=== PATIENT | male | born 1960 | race African-American/Black ===

== ENCOUNTER 2017-04-25 19:52 | Inpatient (IN) | payer OTHER, MEDICAID ==
[~2017-04-25] VITALS: Ht 180.3 cm; Wt 60.8 kg
[2017-04-25] MEDS ORDERED: SODIUM CHLORIDE 0.9% 1,000 ML IV ONE (23:34)
[2017-04-25] MEDS ORDERED: KETOROLAC 30MG/ML VIAL IM ONE (23:45)
[2017-04-26 00:33] LABS: BASOPHILS % 0.9 % (0.0-2.0); EOSINOPHILS % 1.3 % (0.0-5.0); HEMATOCRIT. 45.1 % (42.0-52.0); HEMOGLOBIN. 14.5 g/dL (14.0-18.0); LYMPHOCYTES % 25.3 % (20.0-50.0); MEAN CORPUSCULAR HEMOGLOBIN 29.6 pg (28.0-32.0); MEAN PLATELET VOLUME 8.4 fl (7.4-10.4); MONOCYTES % 12.4 % (2.0-8.0); NEUTROPHILS % 60.1 % (40.0-76.0); PLATELET 163 x1000/uL (130-400); RED CELL DISTRIBUTION WIDTH 16.8 % (11.6-14.6)
[2017-04-26 00:42] LABS: INR 1.1; PROTHROMBIN TIME 11.4 sec (9.4-11.6)
[2017-04-26 00:45] LABS: CHLORIDE 98 mEq/L (98-107)
[2017-04-26 01:01] LABS: CARBON DIOXIDE 35 mEq/L (21-32)
[2017-04-26 03:12] LABS: CLARITY URINE CLOUDY (CLEAR); COLOR URINE DARK YELLOW (YELLOW); GLUCOSE URINE NEGATIVE (NEGATIVE); KETONES URINE TRACE (NEGATIVE); LEUKOCYTE ESTERASE URINE NEGATIVE (NEGATIVE); NITRITE URINE NEGATIVE (NEGATIVE); OCCULT BLOOD URINE NEGATIVE (NEGATIVE); PH URINE 5.5 (4.5-8.0); PROTEIN URINE 2+ (NEGATIVE); SPECIFIC GRAVITY URINE 1.037 (1.005-1.030)
[2017-04-26 03:59] LABS: *AMPHETAMINES SCREEN URINE NEGATIVE (NEGATIVE); *BARBITURATES SCREEN URINE NEGATIVE (NEGATIVE); *BENZODIAZEPINES SCREEN URINE NEGATIVE (NEGATIVE); *COCAINE SCREEN URINE NEGATIVE (NEGATIVE); CANNABINOID URINE SCREEN PRESUMTIVE POSITIVE (NEGATIVE); METHADONE URINE SCREEN NEGATIVE (NEGATIVE); OPIATES URINE SCREEN NEGATIVE (NEGATIVE); PHENCYCLIDINE URINE SCREEN NEGATIVE (NEGATIVE)
[2017-04-26 04:23] LABS: BG BASE EXCESS 3.6 mmol/L (-2.0-2.0); BG CARBOXYHEMOGLOBIN 3.8 % (0.5-1.5); BG DEOXYHEMOGLOBIN 0.3 % (0.0-5.0); BG FRACTION INSPIRED OXYGEN 100; BG HCO3 ACT 33.3 mmol/L (22.0-26.0); BG METHEMOGLOBIN 0.8 % (0.0-1.5); BG OXYGEN SATURATION 99.7 % (92.0-98.5); BG OXYHEMOGLOBIN 95.1 % (94.0-97.0); BG PCO2 75.1 mmHg (35.0-45.0); BG PH 7.265 (7.350-7.450); BG PO2 281.8 mmHg (75.0-100.0); BG SAMPLE SITE LEFT RADIAL; BG TOTAL HEMOGLOBIN 15.2 g/dL (12.0-18.0); BG VENT MODE MASK - NRB
[2017-04-26] MEDS ORDERED: CALCIUM CHLORIDE 1,000 MG in DEXT 5% WATER 90 ML IV SCH (05:00)
[2017-04-26] MEDS ORDERED: LEVOFLOXACIN 750MG PREMIX 150 ML IV ONE (05:30)
[2017-04-26] MEDS ORDERED: IPRATROPIUM BROMIDE (0.02%) 0.5MG/2.5ML NEB HHN SCH (05:36)
[2017-04-26] MEDS ORDERED: ALBUTEROL (0.083%) 2.5MG/3ML NEB HHN SCH ×2 (05:36→12:00)
[2017-04-26] MEDS ORDERED: METHYLPREDNISOLONE SOD SUCC 125 MG/2 ML VIAL IV SCH (05:36)
[2017-04-26] MEDS ORDERED: ASPIRIN 81MG TABLET PO SCH (05:45)
[2017-04-26] MEDS ORDERED: MAGNESIUM 2 G PREMIX 50 ML IV SCH (05:45)
[2017-04-26 08:43] VITALS: BP 92/59
[2017-04-26 11:39] VITALS: BP 92/59
[2017-04-26 12:00] VITALS: BP 98/70
[2017-04-26] MEDS ORDERED: ENOXAPARIN 40MG/0.4ML SYR SUBCUT SCH (12:00)
[2017-04-26 12:36] LABS: BASOPHILS % 0.4 % (0.0-2.0); EOSINOPHILS % 0.1 % (0.0-5.0); HEMOGLOBIN. 15.2 g/dL (14.0-18.0); LYMPHOCYTES % 13.4 % (20.0-50.0); MEAN CORPUSCULAR HEMOGLOBIN 29.7 pg (28.0-32.0); MONOCYTES % 2.1 % (2.0-8.0); PLATELET 166 x1000/uL (130-400); RED BLOOD CELL COUNT 5.11 mill/uL (4.7-6.1); RED CELL DISTRIBUTION WIDTH 17.1 % (11.6-14.6)
[2017-04-26 12:43] LABS: CARBON DIOXIDE 38 mEq/L (21-32); CHLORIDE 98 mEq/L (98-107)
[2017-04-26 14:00] VITALS: BP 109/75
[2017-04-26] MEDS ORDERED: BUDESONIDE 0.5MG/2ML NEB HHN SCH (16:00)
[2017-04-26 17:54] LABS: HEPATITIS B SURFACE ANTIGEN NEGATIVE
[2017-04-26 18:23] LABS: HEPATITIS B CORE AB IGM NEGATIVE
[2017-04-26 18:24] LABS: HEPATITIS A AB IGM NEGATIVE (NEGATIVE)
[2017-04-26] MEDS ORDERED: METHYLPREDNISOLONE SOD SUCC 40 MG/ML VIAL IV SCH (21:00)
[2017-04-27] MEDS ORDERED: LEVOFLOXACIN 500MG PREMIX 100 ML IV SCH (08:00)
== END 2017-04-26 16:10 | disposition left against medical advice (07) | DRG 133 ==
LOC: EDBD → ER 19:53 → 5EST 04-26 05:55 → ENRESERV 04-26 07:53
PROVIDERS: ADMIT Family Medicine; ATTEND Family Medicine
DX: J96.00 Acute respiratory failure, unspecified whether with hypoxia or hypercapnia (principal); G93.41 Metabolic encephalopathy; E43 Unspecified severe protein-calorie malnutrition; I10 Essential (primary) hypertension; D72.819 Decreased white blood cell count, unspecified; E11.9 Type 2 diabetes mellitus without complications; J44.1 Chronic obstructive pulmonary disease with (acute) exacerbation; F12.90 Cannabis use, unspecified, uncomplicated; Q05.9 Spina bifida, unspecified; Z68.1 Body mass index [BMI] 19.9 or less, adult
CPT/HCPCS: 36415; 36600; 71010; 72128; 76800; 80048; 80053; 80305; 81001; 82375; 82805; 83605; 83690; 85025; 85379; 85610; 86705; 86709; 86803; 87040; 87340; 94640; 94660; 96361; 96365; 96366; 96367; 96372; 96375; 99285; G0482; J1650; J1885; J1956; J2930; J3475; J3490; J7030; J7060; J7611

== ENCOUNTER 2017-05-13 07:53 | Inpatient (IN) | payer OTHER, MEDICAID ==
[~2017-05-13] VITALS: Ht 188 cm; Wt 82.7 kg
[2017-05-13 09:28] LABS: BG BASE EXCESS 10.2 mmol/L (-2.0-2.0); BG CARBOXYHEMOGLOBIN 5.6 % (0.5-1.5); BG DEOXYHEMOGLOBIN 23.4 % (0.0-5.0); BG FRACTION INSPIRED OXYGEN 21; BG METHEMOGLOBIN 0.2 % (0.0-1.5); BG OXYGEN SATURATION 75.2 % (92.0-98.5); BG OXYHEMOGLOBIN 70.8 % (94.0-97.0); BG PCO2 78.6 mmHg (35.0-45.0); BG PH 7.324 (7.350-7.450); BG PO2 44.1 mmHg (75.0-100.0); BG SAMPLE SITE RIGHT BRACHIAL; BG TOTAL HEMOGLOBIN 15.2 g/dL (12.0-18.0); BG VENT MODE ROOM AIR
[2017-05-13 09:47] LABS: BASOPHILS % 0.9 % (0.0-2.0); EOSINOPHILS % 0.5 % (0.0-5.0); HEMATOCRIT. 45.6 % (42.0-52.0); HEMOGLOBIN. 14.5 g/dL (14.0-18.0); MEAN CORPUSCULAR HEMOGLOBIN 28.9 pg (28.0-32.0); MEAN CORPUSCULAR VOLUME 90.8 fL (80.0-94.0); MEAN PLATELET VOLUME 7.3 fl (7.4-10.4); MONOCYTES % 14.2 % (2.0-8.0); NEUTROPHILS % 65.4 % (40.0-76.0); PLATELET 192 x1000/uL (130-400); RED BLOOD CELL COUNT 5.02 mill/uL (4.7-6.1); RED CELL DISTRIBUTION WIDTH 17.7 % (11.6-14.6)
[2017-05-13 09:49] LABS: CHLORIDE 96 mEq/L (98-107)
[2017-05-13 09:52] LABS: INR 1.2; PARTIAL THROMBOPLASTIN TIME 24.1 sec (23.4-31.0); PROTHROMBIN TIME 12.8 sec (9.4-11.6)
[2017-05-13 10:05] LABS: CARBON DIOXIDE 41 mEq/L (21-32)
[2017-05-13] MEDS ORDERED: IPRATROPIUM/ALBUTEROL 0.5-3(2.5)MG/3ML NEB HHN ONE (13:15)
[2017-05-13 13:29] LABS: CLARITY URINE CLEAR (CLEAR); COLOR URINE DARK YELLOW (YELLOW); GLUCOSE URINE NEGATIVE (NEGATIVE); KETONES URINE NEGATIVE (NEGATIVE); LEUKOCYTE ESTERASE URINE TRACE (NEGATIVE); NITRITE URINE NEGATIVE (NEGATIVE); OCCULT BLOOD URINE NEGATIVE (NEGATIVE); PROTEIN URINE 2+ (NEGATIVE); SPECIFIC GRAVITY URINE 1.028 (1.005-1.030)
[2017-05-13] MEDS ORDERED: METHYLPREDNISOLONE SOD SUCC 125 MG/2 ML VIAL IV SCH (14:00)
[2017-05-13 17:01] VITALS: BP 118/79
[2017-05-13 17:10] VITALS: BP 118/79
[2017-05-13] MEDS ORDERED: NICOTINE 21MG PATCH TD NR (17:23)
[2017-05-13 18:00] VITALS: BP 104/73
[2017-05-13 20:00] VITALS: BP 110/80
[2017-05-13] MEDS: BUDESONIDE 0.5MG/2ML NEB HHN SCH (20:23)
[2017-05-13 22:00] VITALS: BP 115/82
[2017-05-13] MEDS ORDERED: IPRATROPIUM/ALBUTEROL 0.5-3(2.5)MG/3ML NEB INH PRN (22:00)
[2017-05-13] MEDS ORDERED: MAGNESIUM/ALUMINUM HYDROXIDE/SIMETHICONE 30ML UDC PO PRN (22:00)
[2017-05-13] MEDS ORDERED: CLONIDINE 0.1MG TABLET PO PRN (22:00)
[2017-05-13] MEDS ORDERED: ACETAMINOPHEN 650MG/20.3ML UDC GT PRN (22:00)
[2017-05-13] MEDS ORDERED: ACETAMINOPHEN 325MG TABLET PO PRN (22:00)
[2017-05-13] MEDS ORDERED: NA PHOS,M-B/NA PHOS,DI-BA ENEMA 118ML PR PRN (22:00)
[2017-05-13] MEDS ORDERED: ACETAMINOPHEN 650MG SUPP PR PRN (22:00)
[2017-05-13] MEDS ORDERED: DIPHENHYDRAMINE 50MG/ML VIAL IV PRN (22:00)
[2017-05-13] MEDS ORDERED: DOCUSATE SODIUM 100MG CAPSULE PO PRN (22:00)
[2017-05-13] MEDS ORDERED: GUAIFENESIN 200MG/10ML SUGAR FREE UDC PO PRN (22:00)
[2017-05-13] MEDS ORDERED: HYDROCODONE/ACETAMINOPHEN 5/325MG TABLET PO PRN (22:00)
[2017-05-13] MEDS: SODIUM CHLORIDE 0.9% INJ 3ML FLUSH IVF SCH (22:00)
[2017-05-13] MEDS: QUETIAPINE FUMARATE 25MG TABLET PO SCH (22:11)
[2017-05-13] MEDS: METHYLPREDNISOLONE SOD SUCC 40 MG/ML VIAL IV SCH (22:11)
[2017-05-14] VITALS: BP 114/83
[2017-05-14 02:00] VITALS: BP 96/66
[2017-05-14 03:05] LABS: CREATINE KINASE 119 IU/L (39-308); TROPONIN I < 0.02 ng/mL (0.00-0.04)
[2017-05-14 04:00] VITALS: BP 106/74
[2017-05-14 06:00] VITALS: BP 120/76
[2017-05-14] MEDS: SODIUM CHLORIDE 0.9% INJ 3ML FLUSH IVF SCH (06:31)
[2017-05-14] MEDS: METHYLPREDNISOLONE SOD SUCC 40 MG/ML VIAL IV SCH (06:31)
[2017-05-14 08:00] VITALS: BP 118/80
[2017-05-14] MEDS: QUETIAPINE FUMARATE 25MG TABLET PO SCH (08:34)
[2017-05-14] MEDS: BUDESONIDE 0.5MG/2ML NEB HHN SCH (08:36)
[2017-05-14] MEDS ORDERED: NICOTINE 21MG PATCH TD SCH (09:00)
[2017-05-14 10:00] VITALS: BP 112/77
[2017-05-14 11:32] LABS: BASOPHILS % 0.5 % (0.0-2.0); HEMATOCRIT. 43.6 % (42.0-52.0); HEMOGLOBIN. 13.7 g/dL (14.0-18.0); LYMPHOCYTES % 13.1 % (20.0-50.0); MEAN CORPUSCULAR HEMOGLOBIN 28.4 pg (28.0-32.0); MEAN CORPUSCULAR VOLUME 90.2 fL (80.0-94.0); MEAN PLATELET VOLUME 7.6 fl (7.4-10.4); MONOCYTES % 3.7 % (2.0-8.0); NEUTROPHILS % 82.7 % (40.0-76.0); PLATELET 167 x1000/uL (130-400); RED BLOOD CELL COUNT 4.83 mill/uL (4.7-6.1); RED CELL DISTRIBUTION WIDTH 17.1 % (11.6-14.6)
[2017-05-14 11:52] LABS: CARBON DIOXIDE 37 mEq/L (21-32); CHLORIDE 93 mEq/L (98-107); CREATINE KINASE 99 IU/L (39-308); HDL CHOLESTEROL 38 mg/dL (40-59); LDL CHOLESTEROL 114 mg/dL (5-100); TROPONIN I < 0.02 ng/mL (0.00-0.04)
== END 2017-05-14 11:30 | disposition left against medical advice (07) | DRG 189 ==
LOC: EDBD 08:25 → ER 08:25 → 5EST 13:42 → ENRESERV 15:31
PROVIDERS: ADMIT Family Medicine; ATTEND Family Medicine
PROC: 5A09357 Assistance with Respiratory Ventilation, Less than 24 Consecutive Hours, Continuous Positive Airway Pressure (ICD-10-PCS; principal; 2017-05-13)
DX: J96.01 Acute respiratory failure with hypoxia (principal); E43 Unspecified severe protein-calorie malnutrition; J44.1 Chronic obstructive pulmonary disease with (acute) exacerbation; J96.02 Acute respiratory failure with hypercapnia; F12.90 Cannabis use, unspecified, uncomplicated; F17.210 Nicotine dependence, cigarettes, uncomplicated; F99 Mental disorder, not otherwise specified; Z60.2 Problems related to living alone; Z53.21 Procedure and treatment not carried out due to patient leaving prior to being seen by health care provider; F20.9 Schizophrenia, unspecified; G40.909 Epilepsy, unspecified, not intractable, without status epilepticus; Z87.820 Personal history of traumatic brain injury; Z68.23 Body mass index [BMI] 23.0-23.9, adult; Z72.89 Other problems related to lifestyle
CPT/HCPCS: 36415; 36600; 71010; 80053; 80061; 81001; 82375; 82550; 82805; 83690; 84484; 85025; 85610; 85730; 94640; 94660; 96374; 99285; J2920; J2930; J7620; J7626

== ENCOUNTER 2017-05-17 14:51 | Inpatient (IN) | payer OTHER, MEDICAID ==
[~2017-05-17] VITALS: Ht 172.7 cm; Wt 64.9 kg
[2017-05-17] MEDS ORDERED: METHYLPREDNISOLONE SOD SUCC 125 MG/2 ML VIAL IV STA (15:42)
[2017-05-17] MEDS ORDERED: ALBUTEROL (0.083%) 2.5MG/3ML NEB HHN STA (15:42)
[2017-05-17] MEDS ORDERED: IPRATROPIUM BROMIDE (0.02%) 0.5MG/2.5ML NEB HHN STA (15:42)
[2017-05-17] MEDS ORDERED: LEVOFLOXACIN 750MG PREMIX 150 ML IV ONE (15:45)
[2017-05-17] MEDS ORDERED: MAGNESIUM 2 G PREMIX 50 ML IV ONE (15:45)
[2017-05-17 16:21] LABS: HEMATOCRIT. 43.9 % (42.0-52.0); HEMOGLOBIN. 13.8 g/dL (14.0-18.0); MEAN CORPUSCULAR HEMOGLOBIN 28.4 pg (28.0-32.0); MEAN CORPUSCULAR VOLUME 90.4 fL (80.0-94.0); MEAN PLATELET VOLUME 7.5 fl (7.4-10.4); PLATELET 155 x1000/uL (130-400); RED BLOOD CELL COUNT 4.86 mill/uL (4.7-6.1); RED CELL DISTRIBUTION WIDTH 17.5 % (11.6-14.6)
[2017-05-17 16:23] LABS: CHLORIDE 97 mEq/L (98-107)
[2017-05-17 16:27] LABS: INR 1.2; PARTIAL THROMBOPLASTIN TIME 24.7 sec (23.4-31.0); PROTHROMBIN TIME 12.7 sec (9.4-11.6)
[2017-05-17 16:29] LABS: CARBON DIOXIDE 41 mEq/L (21-32); ETHANOL BLOOD < 10 mg/dL
[2017-05-17 16:35] LABS: TROPONIN I 0.03 ng/mL (0.00-0.04)
[2017-05-17] MEDS ORDERED: FUROSEMIDE 40MG/4ML VIAL IVP ONE (17:00)
[2017-05-17 17:17] LABS: PLATELET ESTIMATE NORMAL
[2017-05-17] MEDS ORDERED: ACETAMINOPHEN 325MG TABLET PO PRN (18:30)
[2017-05-17] MEDS ORDERED: IPRATROPIUM/ALBUTEROL 0.5-3(2.5)MG/3ML NEB INH PRN (18:30)
[2017-05-17] MEDS ORDERED: CLONIDINE 0.1MG TABLET PO PRN (18:30)
[2017-05-17] MEDS ORDERED: ONDANSETRON HCL 4MG/2ML VIAL IV PRN (18:30)
[2017-05-17] MEDS ORDERED: LORAZEPAM 0.5MG TABLET PO PRN (18:30)
[2017-05-17] MEDS ORDERED: MAGNESIUM/ALUMINUM HYDROXIDE/SIMETHICONE 30ML UDC PO PRN (18:30)
[2017-05-17] MEDS ORDERED: DOCUSATE SODIUM 100MG CAPSULE PO PRN (18:30)
[2017-05-17 18:58] LABS: BG BASE EXCESS 7.3 mmol/L (-2.0-2.0); BG BILEVEL POS AIRWAY PRESSURE 15/5; BG CARBOXYHEMOGLOBIN 2.5 % (0.5-1.5); BG DEOXYHEMOGLOBIN 7.5 % (0.0-5.0); BG FRACTION INSPIRED OXYGEN 40; BG HCO3 ACT 37.3 mmol/L (22.0-26.0); BG METHEMOGLOBIN 0.2 % (0.0-1.5); BG OXYGEN SATURATION 92.3 % (92.0-98.5); BG OXYHEMOGLOBIN 89.8 % (94.0-97.0); BG PH 7.287 (7.350-7.450); BG PO2 71.7 mmHg (75.0-100.0); BG SAMPLE SITE RIGHT BRACHIAL; BG TOTAL HEMOGLOBIN 15.1 g/dL (12.0-18.0); BG VENT MODE MASK - BIPAP; BG VENT RATE 16 set
[2017-05-17] MEDS ORDERED: AZITHROMYCIN 500 MG in DEXT 5% WATER 250 ML IV SCH (20:00)
[2017-05-17 21:40] VITALS: BP 93/53
[2017-05-17] MEDS ORDERED: AZITHROMYCIN XX SCH (21:45)
[2017-05-17] MEDS: BUDESONIDE 0.5MG/2ML NEB HHN SCH (22:01)
[2017-05-17 22:02] VITALS: BP 112/48
[2017-05-17 23:31] VITALS: BP 113/51
[2017-05-18] VITALS (15 sets, daily range): BP systolic 90–128; BP diastolic 29–91
[2017-05-18] MEDS: METHYLPREDNISOLONE SOD SUCC 40 MG/ML VIAL IV SCH ×4 (00:07→22:10)
[2017-05-18 00:22] LABS: CREATINE KINASE 121 IU/L (39-308); TROPONIN I < 0.02 ng/mL (0.00-0.04)
[2017-05-18] MEDS: AZITHROMYCIN 500 MG in DEXT 5% WATER 250 ML IV SCH ×2 (00:34→23:51)
[2017-05-18 06:36] LABS: BASOPHILS % 0.6 % (0.0-2.0); EOSINOPHILS % 0.1 % (0.0-5.0); HEMATOCRIT. 43.5 % (42.0-52.0); HEMOGLOBIN. 13.9 g/dL (14.0-18.0); LYMPHOCYTES % 8.9 % (20.0-50.0); MEAN CORPUSCULAR HEMOGLOBIN 28.7 pg (28.0-32.0); MEAN CORPUSCULAR VOLUME 89.9 fL (80.0-94.0); MEAN PLATELET VOLUME 8.1 fl (7.4-10.4); MONOCYTES % 1.3 % (2.0-8.0); NEUTROPHILS % 89.1 % (40.0-76.0); PLATELET 139 x1000/uL (130-400); RED BLOOD CELL COUNT 4.84 mill/uL (4.7-6.1); RED CELL DISTRIBUTION WIDTH 17.1 % (11.6-14.6)
[2017-05-18 07:06] LABS: CARBON DIOXIDE 39 mEq/L (21-32); CHLORIDE 97 mEq/L (98-107); CREATINE KINASE 113 IU/L (39-308); CREATINE KINASE MB FRACTION 4.1 ng/mL (0.5-3.6); HDL CHOLESTEROL 47 mg/dL (40-59); LDL CHOLESTEROL 96 mg/dL (5-100); TROPONIN I < 0.02 ng/mL (0.00-0.04)
[2017-05-18] MEDS: BUDESONIDE 0.5MG/2ML NEB HHN SCH ×2 (08:37→20:59)
[2017-05-18] MEDS: ENOXAPARIN 40MG/0.4ML SYR SUBCUT SCH (09:02)
[2017-05-18 11:10] LABS: BG CARBOXYHEMOGLOBIN 1.5 % (0.5-1.5); BG DEOXYHEMOGLOBIN 7.1 % (0.0-5.0); BG FRACTION INSPIRED OXYGEN 28; BG HCO3 ACT 40.6 mmol/L (22.0-26.0); BG METHEMOGLOBIN 0.4 % (0.0-1.5); BG OXYGEN SATURATION 92.8 % (92.0-98.5); BG PCO2 71.6 mmHg (35.0-45.0); BG PH 7.372 (7.350-7.450); BG PO2 69.2 mmHg (75.0-100.0); BG SAMPLE SITE LEFT BRACHIAL; BG TOTAL HEMOGLOBIN 14.5 g/dL (12.0-18.0); BG VENT MODE NASAL CANNULA
[2017-05-18] MEDS ORDERED: NICOTINE 14MG PATCH TD SCH (13:00)
[2017-05-18] MEDS: LORAZEPAM 2MG/ML CPJ IV PRN (13:29)
[2017-05-18] MEDS: FOLIC ACID/VITAMIN B COMP W-C TABLET PO SCH (13:35)
[2017-05-18] MEDS ORDERED: CHLORDIAZEPOXIDE 25MG CAPSULE PO SCH (14:00)
[2017-05-18 15:17] LABS: AMMONIA 41 uMol/L (<32)
[2017-05-18 17:35] LABS: HEPATITIS B SURFACE ANTIGEN NEGATIVE
[2017-05-18 18:03] LABS: HEPATITIS B CORE AB IGM NEGATIVE
[2017-05-18 18:05] LABS: HEPATITIS A AB IGM NEGATIVE (NEGATIVE)
[2017-05-18] MEDS: NICOTINE 14MG PATCH TD SCH (19:31)
[2017-05-18 19:58] LABS: CLARITY URINE CLEAR (CLEAR); COLOR URINE DARK YELLOW (YELLOW); GLUCOSE URINE NEGATIVE (NEGATIVE); KETONES URINE NEGATIVE (NEGATIVE); LEUKOCYTE ESTERASE URINE NEGATIVE (NEGATIVE); NITRITE URINE NEGATIVE (NEGATIVE); OCCULT BLOOD URINE 2+ (NEGATIVE); PROTEIN URINE TRACE (NEGATIVE); SPECIFIC GRAVITY URINE 1.031 (1.005-1.030)
[2017-05-18 20:16] LABS: *AMPHETAMINES SCREEN URINE NEGATIVE (NEGATIVE); *BARBITURATES SCREEN URINE NEGATIVE (NEGATIVE); *BENZODIAZEPINES SCREEN URINE NEGATIVE (NEGATIVE); *COCAINE SCREEN URINE NEGATIVE (NEGATIVE); CANNABINOID URINE SCREEN NEGATIVE (NEGATIVE); METHADONE URINE SCREEN NEGATIVE (NEGATIVE); OPIATES URINE SCREEN NEGATIVE (NEGATIVE); PHENCYCLIDINE URINE SCREEN NEGATIVE (NEGATIVE)
[2017-05-18] MEDS: IPRATROPIUM/ALBUTEROL 0.5-3(2.5)MG/3ML NEB HHN SCH (20:59)
[2017-05-18] MEDS: CHLORDIAZEPOXIDE 25MG CAPSULE PO SCH (22:18)
[2017-05-19] VITALS (19 sets, daily range): BP systolic 94–140; BP diastolic 64–90
[2017-05-19] MEDS: IPRATROPIUM/ALBUTEROL 0.5-3(2.5)MG/3ML NEB HHN SCH ×4 (01:52→20:02)
[2017-05-19 06:00] LABS: HEMATOCRIT. 44.3 % (42.0-52.0); HEMOGLOBIN. 13.9 g/dL (14.0-18.0); MEAN CORPUSCULAR HEMOGLOBIN 28.2 pg (28.0-32.0); MEAN CORPUSCULAR VOLUME 90.2 fL (80.0-94.0); MEAN PLATELET VOLUME 7.7 fl (7.4-10.4); PLATELET 143 x1000/uL (130-400); RED BLOOD CELL COUNT 4.91 mill/uL (4.7-6.1); RED CELL DISTRIBUTION WIDTH 17.1 % (11.6-14.6)
[2017-05-19] MEDS: METHYLPREDNISOLONE SOD SUCC 40 MG/ML VIAL IV SCH ×3 (06:39→22:51)
[2017-05-19] MEDS: CHLORDIAZEPOXIDE 25MG CAPSULE PO SCH ×3 (06:43→22:51)
[2017-05-19 07:25] LABS: CARBON DIOXIDE 37 mEq/L (21-32); CHLORIDE 96 mEq/L (98-107)
[2017-05-19] MEDS: ENOXAPARIN 40MG/0.4ML SYR SUBCUT SCH (08:39)
[2017-05-19] MEDS: FOLIC ACID/VITAMIN B COMP W-C TABLET PO SCH (08:39)
[2017-05-19] MEDS: BUDESONIDE 0.5MG/2ML NEB HHN SCH ×2 (08:45→20:02)
[2017-05-19] MEDS: NICOTINE 14MG PATCH TD SCH (09:44)
[2017-05-19] MEDS: LACTULOSE 20G/30ML UDC PO SCH (15:09)
[2017-05-19] MEDS: AZITHROMYCIN 500 MG TABLET PO SCH (16:59)
[2017-05-19 17:49] LABS: PLATELET ESTIMATE NORMAL
[2017-05-20] VITALS (12 sets, daily range): BP systolic 119–144; BP diastolic 68–97
[2017-05-20] MEDS: IPRATROPIUM/ALBUTEROL 0.5-3(2.5)MG/3ML NEB HHN SCH ×4 (02:09→20:20)
[2017-05-20] MEDS: METHYLPREDNISOLONE SOD SUCC 40 MG/ML VIAL IV SCH ×3 (06:11→21:42)
[2017-05-20] MEDS: CHLORDIAZEPOXIDE 25MG CAPSULE PO SCH (06:11)
[2017-05-20 06:48] LABS: HEMATOCRIT. 43.8 % (42.0-52.0); HEMOGLOBIN. 13.9 g/dL (14.0-18.0); MEAN CORPUSCULAR HEMOGLOBIN 28.5 pg (28.0-32.0); MEAN CORPUSCULAR VOLUME 90.2 fL (80.0-94.0); MEAN PLATELET VOLUME 7.6 fl (7.4-10.4); PLATELET 147 x1000/uL (130-400); RED BLOOD CELL COUNT 4.86 mill/uL (4.7-6.1); RED CELL DISTRIBUTION WIDTH 16.9 % (11.6-14.6)
[2017-05-20] MEDS: BUDESONIDE 0.5MG/2ML NEB HHN SCH ×2 (07:19→20:20)
[2017-05-20 07:35] LABS: CHLORIDE 93 mEq/L (98-107)
[2017-05-20 08:13] LABS: CARBON DIOXIDE 40 mEq/L (21-32)
[2017-05-20] MEDS: LACTULOSE 20G/30ML UDC PO SCH (08:46)
[2017-05-20] MEDS: ENOXAPARIN 40MG/0.4ML SYR SUBCUT SCH (08:46)
[2017-05-20] MEDS: AZITHROMYCIN 500 MG TABLET PO SCH (08:47)
[2017-05-20] MEDS: FOLIC ACID/VITAMIN B COMP W-C TABLET PO SCH (08:47)
[2017-05-20] MEDS: NICOTINE 14MG PATCH TD SCH (08:48)
[2017-05-20] MEDS ORDERED: GUAIFENESIN/CODEINE 100-10MG/5ML UDC PO PRN (10:00)
[2017-05-20 13:56] LABS: PLATELET ESTIMATE NORMAL
[2017-05-20] MEDS: CHLORDIAZEPOXIDE 5 MG CAPSULE PO SCH ×2 (14:31→21:40)
[2017-05-21] VITALS (12 sets, daily range): BP systolic 108–141; BP diastolic 75–97
[2017-05-21] MEDS: IPRATROPIUM/ALBUTEROL 0.5-3(2.5)MG/3ML NEB HHN SCH ×4 (02:07→20:45)
[2017-05-21] MEDS: CHLORDIAZEPOXIDE 5 MG CAPSULE PO SCH ×3 (06:14→21:01)
[2017-05-21] MEDS: METHYLPREDNISOLONE SOD SUCC 40 MG/ML VIAL IV SCH ×3 (06:28→21:01)
[2017-05-21] MEDS: LACTULOSE 20G/30ML UDC PO SCH (08:19)
[2017-05-21] MEDS: FOLIC ACID/VITAMIN B COMP W-C TABLET PO SCH (08:20)
[2017-05-21] MEDS: AZITHROMYCIN 500 MG TABLET PO SCH (08:20)
[2017-05-21] MEDS: NICOTINE 14MG PATCH TD SCH (08:20)
[2017-05-21] MEDS: ENOXAPARIN 40MG/0.4ML SYR SUBCUT SCH (08:20)
[2017-05-21] MEDS: BUDESONIDE 0.5MG/2ML NEB HHN SCH ×2 (08:32→20:45)
[2017-05-21 10:35] LABS: BG BASE EXCESS 12.2 mmol/L (-2.0-2.0); BG CARBOXYHEMOGLOBIN 1.1 % (0.5-1.5); BG DEOXYHEMOGLOBIN 14.5 % (0.0-5.0); BG FRACTION INSPIRED OXYGEN 32; BG HCO3 ACT 44.1 mmol/L (22.0-26.0); BG METHEMOGLOBIN 0.4 % (0.0-1.5); BG OXYGEN SATURATION 85.3 % (92.0-98.5); BG PCO2 97.7 mmHg (35.0-45.0); BG PH 7.272 (7.350-7.450); BG PO2 54.3 mmHg (75.0-100.0); BG SAMPLE SITE RIGHT RADIAL; BG TOTAL HEMOGLOBIN 15.2 g/dL (12.0-18.0); BG VENT MODE NASAL CANNULA
[2017-05-21] MEDS ORDERED: FUROSEMIDE 40MG/4ML VIAL IVP ONE (13:30)
[2017-05-21] MEDS: LORAZEPAM 2MG/ML CPJ IV PRN (13:48)
[2017-05-21] MEDS: PANTOPRAZOLE 40MG DR TABLET PO SCH (13:48)
[2017-05-21] MEDS ORDERED: PIPERACILLIN/TAZ 3.375G PREMIX 50 ML IV SCH (14:00)
[2017-05-21] MEDS: PIPERACILLIN/TAZ 3.375G PREMIX 50 ML IV SCH ×2 (15:12→21:01)
[2017-05-21 16:04] LABS: BG BASE EXCESS 13.6 mmol/L (-2.0-2.0); BG BILEVEL POS AIRWAY PRESSURE 15/5; BG CARBOXYHEMOGLOBIN 1.7 % (0.5-1.5); BG DEOXYHEMOGLOBIN 5.3 % (0.0-5.0); BG FRACTION INSPIRED OXYGEN 40; BG HCO3 ACT 45.3 mmol/L (22.0-26.0); BG METHEMOGLOBIN 0.4 % (0.0-1.5); BG OXYGEN SATURATION 94.6 % (92.0-98.5); BG OXYHEMOGLOBIN 92.6 % (94.0-97.0); BG PCO2 97.5 mmHg (35.0-45.0); BG PH 7.285 (7.350-7.450); BG PO2 74.9 mmHg (75.0-100.0); BG SAMPLE SITE RIGHT RADIAL; BG TOTAL HEMOGLOBIN 14.9 g/dL (12.0-18.0); BG VENT MODE MASK - BIPAP; BG VENT RATE 16 set
[2017-05-21 18:46] LABS: BG BASE EXCESS 14.7 mmol/L (-2.0-2.0); BG BILEVEL POS AIRWAY PRESSURE EPAP 5; BG CARBOXYHEMOGLOBIN 0.9 % (0.5-1.5); BG DEOXYHEMOGLOBIN 6.6 % (0.0-5.0); BG FRACTION INSPIRED OXYGEN 40; BG METHEMOGLOBIN 0.1 % (0.0-1.5); BG OXYGEN SATURATION 93.3 % (92.0-98.5); BG OXYHEMOGLOBIN 92.4 % (94.0-97.0); BG PCO2 83.9 mmHg (35.0-45.0); BG PH 7.347 (7.350-7.450); BG PO2 68.8 mmHg (75.0-100.0); BG SAMPLE SITE RIGHT RADIAL; BG TIDAL VOLUME(mL) 500 mL; BG TOTAL HEMOGLOBIN 14.9 g/dL (12.0-18.0); BG VENT MODE MASK- AVAPS; BG VENT RATE 20 set
[2017-05-22] VITALS (17 sets, daily range): BP systolic 105–144; BP diastolic 43–87
[2017-05-22] MEDS: IPRATROPIUM/ALBUTEROL 0.5-3(2.5)MG/3ML NEB HHN SCH ×4 (01:03→20:23)
[2017-05-22] MEDS: PIPERACILLIN/TAZ 3.375G PREMIX 50 ML IV SCH ×4 (02:19→21:36)
[2017-05-22 05:54] LABS: HEMOGLOBIN. 14.3 g/dL (14.0-18.0); MEAN CORPUSCULAR HEMOGLOBIN 28.1 pg (28.0-32.0); MEAN CORPUSCULAR VOLUME 90.6 fL (80.0-94.0); MEAN PLATELET VOLUME 7.9 fl (7.4-10.4); PLATELET 116 x1000/uL (130-400); RED BLOOD CELL COUNT 5.08 mill/uL (4.7-6.1); RED CELL DISTRIBUTION WIDTH 16.9 % (11.6-14.6)
[2017-05-22] MEDS: PANTOPRAZOLE 40MG DR TABLET PO SCH (06:18)
[2017-05-22] MEDS: CHLORDIAZEPOXIDE 5 MG CAPSULE PO SCH ×3 (06:18→21:36)
[2017-05-22] MEDS: METHYLPREDNISOLONE SOD SUCC 40 MG/ML VIAL IV SCH ×3 (06:19→21:37)
[2017-05-22 06:42] LABS: CHLORIDE 90 mEq/L (98-107)
[2017-05-22 07:46] LABS: CARBON DIOXIDE 45 mEq/L (21-32)
[2017-05-22] MEDS: AZITHROMYCIN 500 MG TABLET PO SCH (08:01)
[2017-05-22] MEDS: LACTULOSE 20G/30ML UDC PO SCH (08:01)
[2017-05-22] MEDS: ENOXAPARIN 40MG/0.4ML SYR SUBCUT SCH (08:01)
[2017-05-22] MEDS: FOLIC ACID/VITAMIN B COMP W-C TABLET PO SCH (08:01)
[2017-05-22] MEDS: NICOTINE 14MG PATCH TD SCH (08:02)
[2017-05-22] MEDS: BUDESONIDE 0.5MG/2ML NEB HHN SCH ×2 (08:43→20:22)
[2017-05-22 09:49] LABS: BG BASE EXCESS 15.6 mmol/L (-2.0-2.0); BG CARBOXYHEMOGLOBIN 1.4 % (0.5-1.5); BG DEOXYHEMOGLOBIN 8.4 % (0.0-5.0); BG FRACTION INSPIRED OXYGEN 36; BG HCO3 ACT 47.2 mmol/L (22.0-26.0); BG METHEMOGLOBIN 0.4 % (0.0-1.5); BG OXYGEN SATURATION 91.4 % (92.0-98.5); BG OXYHEMOGLOBIN 89.8 % (94.0-97.0); BG PCO2 94.1 mmHg (35.0-45.0); BG PH 7.318 (7.350-7.450); BG PO2 65.8 mmHg (75.0-100.0); BG SAMPLE SITE LEFT BRACHIAL; BG TOTAL HEMOGLOBIN 15.4 g/dL (12.0-18.0); BG VENT MODE NASAL CANNULA
[2017-05-22 10:43] LABS: PLATELET ESTIMATE DECREASED
[2017-05-22] MEDS: THEOPHYLLINE ANHYDROUS 80 MG/15 ML 120ML PO SCH ×2 (11:17→21:38)
[2017-05-22] MEDS: LORAZEPAM 2MG/ML CPJ IV PRN (11:17)
[2017-05-22 15:41] LABS: BG BASE EXCESS 12.7 mmol/L (-2.0-2.0); BG BILEVEL POS AIRWAY PRESSURE ST=15/5; BG CARBOXYHEMOGLOBIN 1.4 % (0.5-1.5); BG DEOXYHEMOGLOBIN 3.1 % (0.0-5.0); BG FRACTION INSPIRED OXYGEN 40; BG HCO3 ACT 43.6 mmol/L (22.0-26.0); BG METHEMOGLOBIN 0.4 % (0.0-1.5); BG OXYGEN SATURATION 96.8 % (92.0-98.5); BG OXYHEMOGLOBIN 95.1 % (94.0-97.0); BG PCO2 88.4 mmHg (35.0-45.0); BG PH 7.311 (7.350-7.450); BG PO2 91.8 mmHg (75.0-100.0); BG PRESSURE SUPPORT 10; BG SAMPLE SITE LEFT BRACHIAL; BG TOTAL HEMOGLOBIN 15.2 g/dL (12.0-18.0); BG VENT MODE MASK - BIPAP; BG VENT RATE 16 set
[2017-05-22] MEDS ORDERED: PROPOFOL 10MG/ML 100ML 100 ML IV PRN (16:00)
[2017-05-22 18:39] LABS: BG CARBOXYHEMOGLOBIN 1.5 % (0.5-1.5); BG FRACTION INSPIRED OXYGEN 40; BG HCO3 ACT 48.7 mmol/L (22.0-26.0); BG METHEMOGLOBIN 0.4 % (0.0-1.5); BG OXYGEN SATURATION 88.8 % (92.0-98.5); BG OXYHEMOGLOBIN 87.1 % (94.0-97.0); BG PCO2 95.5 mmHg (35.0-45.0); BG PH 7.325 (7.350-7.450); BG PO2 58.3 mmHg (75.0-100.0); BG SAMPLE SITE RIGHT RADIAL; BG TOTAL HEMOGLOBIN 15.3 g/dL (12.0-18.0); BG VENT MODE VAPOTHERM
[2017-05-22] MEDS: AMLODIPINE 2.5MG TABLET PO SCH (21:36)
[2017-05-23] VITALS (21 sets, daily range): BP systolic 95–160; BP diastolic 39–109
[2017-05-23] MEDS: IPRATROPIUM/ALBUTEROL 0.5-3(2.5)MG/3ML NEB HHN SCH ×5 (02:32→20:30)
[2017-05-23] MEDS: PIPERACILLIN/TAZ 3.375G PREMIX 50 ML IV SCH ×4 (03:55→22:19)
[2017-05-23 06:05] LABS: HEMATOCRIT. 45.3 % (42.0-52.0); HEMOGLOBIN. 14.2 g/dL (14.0-18.0); MEAN CORPUSCULAR HEMOGLOBIN 28.1 pg (28.0-32.0); MEAN CORPUSCULAR VOLUME 89.6 fL (80.0-94.0); MEAN PLATELET VOLUME 7.5 fl (7.4-10.4); PLATELET 97 x1000/uL (130-400); RED BLOOD CELL COUNT 5.06 mill/uL (4.7-6.1); RED CELL DISTRIBUTION WIDTH 16.9 % (11.6-14.6)
[2017-05-23] MEDS: CHLORDIAZEPOXIDE 5 MG CAPSULE PO SCH ×3 (06:24→21:39)
[2017-05-23] MEDS: METHYLPREDNISOLONE SOD SUCC 40 MG/ML VIAL IV SCH ×2 (06:24→21:39)
[2017-05-23] MEDS: THEOPHYLLINE ANHYDROUS 80 MG/15 ML 120ML PO SCH ×3 (06:25→21:39)
[2017-05-23 06:43] LABS: CHLORIDE 89 mEq/L (98-107)
[2017-05-23 06:53] LABS: CARBON DIOXIDE 43 mEq/L (21-32)
[2017-05-23] MEDS: BUDESONIDE 0.5MG/2ML NEB HHN SCH ×2 (08:24→20:30)
[2017-05-23] MEDS: PANTOPRAZOLE 40MG DR TABLET PO SCH (08:27)
[2017-05-23] MEDS: LACTULOSE 20G/30ML UDC PO SCH (08:27)
[2017-05-23] MEDS: AZITHROMYCIN 500 MG TABLET PO SCH (08:27)
[2017-05-23] MEDS: ENOXAPARIN 40MG/0.4ML SYR SUBCUT SCH (08:27)
[2017-05-23] MEDS: FOLIC ACID/VITAMIN B COMP W-C TABLET PO SCH (08:27)
[2017-05-23] MEDS: AMLODIPINE 2.5MG TABLET PO SCH ×2 (08:27→21:38)
[2017-05-23 08:41] LABS: BG BASE EXCESS 12.8 mmol/L (-2.0-2.0); BG CARBOXYHEMOGLOBIN 1.5 % (0.5-1.5); BG DEOXYHEMOGLOBIN 9.3 % (0.0-5.0); BG FRACTION INSPIRED OXYGEN 35; BG HCO3 ACT 42.5 mmol/L (22.0-26.0); BG OXYGEN SATURATION 90.6 % (92.0-98.5); BG OXYHEMOGLOBIN 89.2 % (94.0-97.0); BG PCO2 77.9 mmHg (35.0-45.0); BG PH 7.355 (7.350-7.450); BG PO2 60.9 mmHg (75.0-100.0); BG SAMPLE SITE LEFT RADIAL; BG TOTAL HEMOGLOBIN 15.7 g/dL (12.0-18.0); BG VENT MODE VAPOTHERM
[2017-05-23 08:44] LABS: PLATELET ESTIMATE SLIGHTLY DECREASED
[2017-05-23] MEDS: NICOTINE 14MG PATCH TD SCH (09:38)
[2017-05-23] MEDS ORDERED: GUAIFENESIN/CODEINE 100-10MG/5ML UDC PO PRN (10:00)
[2017-05-23 10:10] LABS: AMMONIA 30 uMol/L (<32)
[2017-05-23] MEDS: ACETYLCYSTEINE 100MG/ML 10% VIAL 4ML INH SCH ×3 (12:25→20:30)
[2017-05-23 20:24] LABS: HAPTOGLOBIN 127 mg/dL (30-200)
[2017-05-23 20:38] LABS: FERRITIN 74 ng/mL (22-322)
[2017-05-23 20:39] LABS: FOLIC ACID (FOLATE) SERUM > 20.00 ng/mL (>5.38)
[2017-05-24] VITALS (10 sets, daily range): BP systolic 106–155; BP diastolic 71–102
[2017-05-24] MEDS: IPRATROPIUM/ALBUTEROL 0.5-3(2.5)MG/3ML NEB HHN SCH ×6 (00:25→20:16)
[2017-05-24] MEDS: ACETYLCYSTEINE 100MG/ML 10% VIAL 4ML INH SCH ×6 (00:25→20:15)
[2017-05-24] MEDS: PIPERACILLIN/TAZ 3.375G PREMIX 50 ML IV SCH ×4 (04:03→20:39)
[2017-05-24] MEDS: PANTOPRAZOLE 40MG DR TABLET PO SCH (06:39)
[2017-05-24] MEDS: THEOPHYLLINE ANHYDROUS 80 MG/15 ML 120ML PO SCH ×3 (06:39→21:16)
[2017-05-24] MEDS: CHLORDIAZEPOXIDE 5 MG CAPSULE PO SCH ×3 (06:39→21:16)
[2017-05-24] MEDS: METHYLPREDNISOLONE SOD SUCC 40 MG/ML VIAL IV SCH ×2 (08:03→20:39)
[2017-05-24] MEDS: AZITHROMYCIN 500 MG TABLET PO SCH (08:04)
[2017-05-24] MEDS: FOLIC ACID/VITAMIN B COMP W-C TABLET PO SCH (08:04)
[2017-05-24] MEDS: ENOXAPARIN 40MG/0.4ML SYR SUBCUT SCH (08:05)
[2017-05-24] MEDS: NICOTINE 14MG PATCH TD SCH (08:05)
[2017-05-24] MEDS: AMLODIPINE 2.5MG TABLET PO SCH (08:05)
[2017-05-24] MEDS: LACTULOSE 20G/30ML UDC PO SCH (08:13)
[2017-05-24] MEDS: BUDESONIDE 0.5MG/2ML NEB HHN SCH ×2 (08:24→20:15)
[2017-05-24 11:52] LABS: HEMATOCRIT. 46.5 % (42.0-52.0); HEMOGLOBIN. 14.5 g/dL (14.0-18.0); MEAN CORPUSCULAR HEMOGLOBIN 28.1 pg (28.0-32.0); MEAN CORPUSCULAR VOLUME 90.3 fL (80.0-94.0); MEAN PLATELET VOLUME 7.5 fl (7.4-10.4); PLATELET 73 x1000/uL (130-400); RED BLOOD CELL COUNT 5.15 mill/uL (4.7-6.1); RED CELL DISTRIBUTION WIDTH 17.1 % (11.6-14.6)
[2017-05-24 12:04] LABS: CARBON DIOXIDE 39 mEq/L (21-32); CHLORIDE 93 mEq/L (98-107)
[2017-05-24 14:14] LABS: PLATELET ESTIMATE DECREASED
[2017-05-24] MEDS ORDERED: DILTIAZEM HCL 5MG/ML 5ML VIAL IV PRN (16:30)
[2017-05-24] MEDS: DILTIAZEM HCL 60MG TABLET PO SCH (21:16)
[2017-05-25] VITALS (12 sets, daily range): BP systolic 90–159; BP diastolic 42–108
[2017-05-25] MEDS: IPRATROPIUM/ALBUTEROL 0.5-3(2.5)MG/3ML NEB HHN SCH ×6 (00:57→20:12)
[2017-05-25] MEDS: ACETYLCYSTEINE 100MG/ML 10% VIAL 4ML INH SCH ×5 (00:57→16:22)
[2017-05-25] MEDS: PIPERACILLIN/TAZ 3.375G PREMIX 50 ML IV SCH ×4 (03:46→21:24)
[2017-05-25] MEDS: THEOPHYLLINE ANHYDROUS 80 MG/15 ML 120ML PO SCH ×3 (06:03→22:22)
[2017-05-25] MEDS: PANTOPRAZOLE 40MG DR TABLET PO SCH (06:03)
[2017-05-25] MEDS: CHLORDIAZEPOXIDE 5 MG CAPSULE PO SCH ×3 (06:03→21:24)
[2017-05-25] MEDS: DILTIAZEM HCL 60MG TABLET PO SCH ×3 (06:03→21:25)
[2017-05-25] MEDS: BUDESONIDE 0.5MG/2ML NEB HHN SCH ×2 (07:57→20:12)
[2017-05-25] MEDS: LACTULOSE 20G/30ML UDC PO SCH (08:45)
[2017-05-25] MEDS: METHYLPREDNISOLONE SOD SUCC 40 MG/ML VIAL IV SCH (08:45)
[2017-05-25] MEDS: NICOTINE 14MG PATCH TD SCH (08:46)
[2017-05-25] MEDS: FOLIC ACID/VITAMIN B COMP W-C TABLET PO SCH (08:46)
[2017-05-25] MEDS: ENOXAPARIN 40MG/0.4ML SYR SUBCUT SCH (09:00)
[2017-05-26] VITALS (12 sets, daily range): BP systolic 110–150; BP diastolic 59–89
[2017-05-26] MEDS: ACETYLCYSTEINE 100MG/ML 10% VIAL 4ML INH SCH ×6 (00:01→23:43)
[2017-05-26] MEDS: IPRATROPIUM/ALBUTEROL 0.5-3(2.5)MG/3ML NEB HHN SCH ×6 (00:01→23:43)
[2017-05-26] MEDS: PIPERACILLIN/TAZ 3.375G PREMIX 50 ML IV SCH ×4 (03:57→21:27)
[2017-05-26] MEDS: CHLORDIAZEPOXIDE 5 MG CAPSULE PO SCH ×3 (06:16→21:27)
[2017-05-26] MEDS: PANTOPRAZOLE 40MG DR TABLET PO SCH (06:17)
[2017-05-26] MEDS: DILTIAZEM HCL 60MG TABLET PO SCH ×3 (06:17→21:28)
[2017-05-26] MEDS: THEOPHYLLINE ANHYDROUS 80 MG/15 ML 120ML PO SCH ×3 (06:18→21:28)
[2017-05-26] MEDS: FOLIC ACID/VITAMIN B COMP W-C TABLET PO SCH (08:23)
[2017-05-26] MEDS: PREDNISONE 20MG TABLET PO SCH (08:25)
[2017-05-26] MEDS: NICOTINE 14MG PATCH TD SCH (08:26)
[2017-05-26] MEDS: LACTULOSE 20G/30ML UDC PO SCH (09:00)
[2017-05-26] MEDS: BUDESONIDE 0.5MG/2ML NEB HHN SCH ×2 (11:29→19:54)
[2017-05-26 14:05] LABS: BG CARBOXYHEMOGLOBIN 1.2 % (0.5-1.5); BG DEOXYHEMOGLOBIN 15.7 % (0.0-5.0); BG FRACTION INSPIRED OXYGEN 21; BG HCO3 ACT 41.8 mmol/L (22.0-26.0); BG METHEMOGLOBIN 0.2 % (0.0-1.5); BG OXYGEN SATURATION 84.1 % (92.0-98.5); BG OXYHEMOGLOBIN 82.9 % (94.0-97.0); BG PH 7.426 (7.350-7.450); BG PO2 49.5 mmHg (75.0-100.0); BG SAMPLE SITE RIGHT BRACHIAL; BG TOTAL HEMOGLOBIN 15.3 g/dL (12.0-18.0); BG VENT MODE ROOM AIR
[2017-05-27] VITALS (12 sets, daily range): BP systolic 96–148; BP diastolic 51–97
[2017-05-27] MEDS: PIPERACILLIN/TAZ 3.375G PREMIX 50 ML IV SCH ×4 (02:05→21:13)
[2017-05-27] MEDS: IPRATROPIUM/ALBUTEROL 0.5-3(2.5)MG/3ML NEB HHN SCH ×5 (03:57→20:00)
[2017-05-27] MEDS: ACETYLCYSTEINE 100MG/ML 10% VIAL 4ML INH SCH ×4 (03:57→19:59)
[2017-05-27] MEDS: PANTOPRAZOLE 40MG DR TABLET PO SCH (06:41)
[2017-05-27] MEDS: CHLORDIAZEPOXIDE 5 MG CAPSULE PO SCH ×3 (06:41→21:13)
[2017-05-27] MEDS: THEOPHYLLINE ANHYDROUS 80 MG/15 ML 120ML PO SCH ×3 (06:42→21:14)
[2017-05-27] MEDS: DILTIAZEM HCL 60MG TABLET PO SCH ×3 (06:58→21:14)
[2017-05-27 07:33] LABS: BASOPHILS % 0.3 % (0.0-2.0); EOSINOPHILS % 0.4 % (0.0-5.0); HEMATOCRIT. 46.6 % (42.0-52.0); HEMOGLOBIN. 14.8 g/dL (14.0-18.0); LYMPHOCYTES % 12.3 % (20.0-50.0); MEAN CORPUSCULAR HEMOGLOBIN 28.2 pg (28.0-32.0); MEAN CORPUSCULAR VOLUME 88.7 fL (80.0-94.0); MEAN PLATELET VOLUME 8.3 fl (7.4-10.4); MONOCYTES % 10.5 % (2.0-8.0); NEUTROPHILS % 76.5 % (40.0-76.0); PLATELET 68 x1000/uL (130-400); RED BLOOD CELL COUNT 5.25 mill/uL (4.7-6.1); RED CELL DISTRIBUTION WIDTH 17.7 % (11.6-14.6)
[2017-05-27 07:59] LABS: CHLORIDE 95 mEq/L (98-107)
[2017-05-27] MEDS: FOLIC ACID/VITAMIN B COMP W-C TABLET PO SCH (08:28)
[2017-05-27] MEDS: LACTULOSE 20G/30ML UDC PO SCH (08:28)
[2017-05-27] MEDS: PREDNISONE 20MG TABLET PO SCH (08:28)
[2017-05-27] MEDS: NICOTINE 14MG PATCH TD SCH (08:33)
[2017-05-27 08:35] LABS: CARBON DIOXIDE 41 mEq/L (21-32)
[2017-05-27] MEDS: BUDESONIDE 0.5MG/2ML NEB HHN SCH ×2 (09:00→19:59)
[2017-05-28] VITALS (16 sets, daily range): BP systolic 91–161; BP diastolic 61–102
[2017-05-28] MEDS: IPRATROPIUM/ALBUTEROL 0.5-3(2.5)MG/3ML NEB HHN SCH ×6 (00:16→19:54)
[2017-05-28] MEDS: PIPERACILLIN/TAZ 3.375G PREMIX 50 ML IV SCH ×2 (03:23→10:18)
[2017-05-28] MEDS: ACETYLCYSTEINE 100MG/ML 10% VIAL 4ML INH SCH ×2 (04:25→11:57)
[2017-05-28] MEDS: THEOPHYLLINE ANHYDROUS 80 MG/15 ML 120ML PO SCH ×3 (05:47→21:09)
[2017-05-28] MEDS: CHLORDIAZEPOXIDE 5 MG CAPSULE PO SCH ×2 (05:47→13:39)
[2017-05-28] MEDS: DILTIAZEM HCL 60MG TABLET PO SCH ×3 (05:47→21:11)
[2017-05-28] MEDS: PANTOPRAZOLE 40MG DR TABLET PO SCH (05:51)
[2017-05-28 06:50] LABS: BASOPHILS % 0.4 % (0.0-2.0); EOSINOPHILS % 0.1 % (0.0-5.0); HEMATOCRIT. 48.3 % (42.0-52.0); HEMOGLOBIN. 15.2 g/dL (14.0-18.0); LYMPHOCYTES % 13.2 % (20.0-50.0); MEAN CORPUSCULAR HEMOGLOBIN 27.9 pg (28.0-32.0); MEAN CORPUSCULAR VOLUME 88.8 fL (80.0-94.0); MEAN PLATELET VOLUME 7.7 fl (7.4-10.4); NEUTROPHILS % 73.3 % (40.0-76.0); PLATELET 56 x1000/uL (130-400); RED BLOOD CELL COUNT 5.44 mill/uL (4.7-6.1); RED CELL DISTRIBUTION WIDTH 17.7 % (11.6-14.6)
[2017-05-28 07:48] LABS: CARBON DIOXIDE 38 mEq/L (21-32); CHLORIDE 95 mEq/L (98-107)
[2017-05-28] MEDS: BUDESONIDE 0.5MG/2ML NEB HHN SCH ×2 (09:04→19:54)
[2017-05-28] MEDS: LACTULOSE 20G/30ML UDC PO SCH (10:17)
[2017-05-28] MEDS: NICOTINE 14MG PATCH TD SCH (10:18)
[2017-05-28] MEDS: FOLIC ACID/VITAMIN B COMP W-C TABLET PO SCH (10:18)
[2017-05-28] MEDS: PREDNISONE 20MG TABLET PO SCH (10:18)
[2017-05-28] MEDS: CARBAMAZEPINE 100MG TABLET CHEW PO SCH (17:30)
[2017-05-29] VITALS (12 sets, daily range): BP systolic 96–139; BP diastolic 59–89
[2017-05-29] MEDS: IPRATROPIUM/ALBUTEROL 0.5-3(2.5)MG/3ML NEB HHN SCH ×6 (00:37→19:50)
[2017-05-29] MEDS: THEOPHYLLINE ANHYDROUS 80 MG/15 ML 120ML PO SCH ×3 (05:55→23:07)
[2017-05-29] MEDS: PANTOPRAZOLE 40MG DR TABLET PO SCH (05:55)
[2017-05-29] MEDS: DILTIAZEM HCL 60MG TABLET PO SCH ×3 (05:57→22:05)
[2017-05-29 06:14] LABS: BASOPHILS % 1.3 % (0.0-2.0); EOSINOPHILS % 0.3 % (0.0-5.0); HEMATOCRIT. 44.8 % (42.0-52.0); HEMOGLOBIN. 14.2 g/dL (14.0-18.0); LYMPHOCYTES % 14.4 % (20.0-50.0); MEAN CORPUSCULAR HEMOGLOBIN 27.9 pg (28.0-32.0); MEAN CORPUSCULAR VOLUME 87.9 fL (80.0-94.0); MEAN PLATELET VOLUME 7.7 fl (7.4-10.4); MONOCYTES % 7.1 % (2.0-8.0); NEUTROPHILS % 76.9 % (40.0-76.0); PLATELET 61 x1000/uL (130-400)
[2017-05-29 06:34] LABS: CARBON DIOXIDE 33 mEq/L (21-32); CHLORIDE 97 mEq/L (98-107)
[2017-05-29] MEDS: BUDESONIDE 0.5MG/2ML NEB HHN SCH ×2 (07:28→19:50)
[2017-05-29] MEDS: CARBAMAZEPINE 100MG TABLET CHEW PO SCH ×2 (08:07→18:08)
[2017-05-29] MEDS: PREDNISONE 20MG TABLET PO SCH (08:08)
[2017-05-29] MEDS: LACTULOSE 20G/30ML UDC PO SCH (08:09)
[2017-05-29] MEDS: FOLIC ACID 1MG TABLET PO SCH (08:09)
[2017-05-29] MEDS: MULTIVITAMINS,THER W-MINERALS TABLET PO SCH (08:09)
[2017-05-29] MEDS: THIAMINE HCL 100MG TABLET PO SCH (08:09)
[2017-05-29] MEDS: NICOTINE 14MG PATCH TD SCH (08:12)
[2017-05-30] VITALS (12 sets, daily range): BP systolic 95–152; BP diastolic 63–99
[2017-05-30] MEDS: IPRATROPIUM/ALBUTEROL 0.5-3(2.5)MG/3ML NEB HHN SCH ×6 (00:46→20:52)
[2017-05-30] MEDS: PANTOPRAZOLE 40MG DR TABLET PO SCH (06:28)
[2017-05-30] MEDS: THEOPHYLLINE ANHYDROUS 80 MG/15 ML 120ML PO SCH ×3 (06:28→22:07)
[2017-05-30] MEDS: DILTIAZEM HCL 60MG TABLET PO SCH ×3 (06:30→22:07)
[2017-05-30 06:56] LABS: EOSINOPHILS % 0.3 % (0.0-5.0); HEMATOCRIT. 43.8 % (42.0-52.0); LYMPHOCYTES % 26.6 % (20.0-50.0); MEAN CORPUSCULAR HEMOGLOBIN 28.1 pg (28.0-32.0); MEAN CORPUSCULAR VOLUME 87.8 fL (80.0-94.0); MEAN PLATELET VOLUME 7.7 fl (7.4-10.4); MONOCYTES % 12.5 % (2.0-8.0); NEUTROPHILS % 59.6 % (40.0-76.0); PLATELET 64 x1000/uL (130-400); RED BLOOD CELL COUNT 4.99 mill/uL (4.7-6.1); RED CELL DISTRIBUTION WIDTH 17.6 % (11.6-14.6)
[2017-05-30] MEDS: BUDESONIDE 0.5MG/2ML NEB HHN SCH ×2 (07:13→20:52)
[2017-05-30 07:16] LABS: CARBON DIOXIDE 36 mEq/L (21-32); CHLORIDE 99 mEq/L (98-107)
[2017-05-30] MEDS: MULTIVITAMINS,THER W-MINERALS TABLET PO SCH (08:03)
[2017-05-30] MEDS: FOLIC ACID 1MG TABLET PO SCH (08:03)
[2017-05-30] MEDS: PREDNISONE 20MG TABLET PO SCH (08:03)
[2017-05-30] MEDS: CARBAMAZEPINE 100MG TABLET CHEW PO SCH ×2 (08:03→16:41)
[2017-05-30] MEDS: NICOTINE 14MG PATCH TD SCH (08:04)
[2017-05-30] MEDS: THIAMINE HCL 100MG TABLET PO SCH (08:04)
[2017-05-30] MEDS: LACTULOSE 20G/30ML UDC PO SCH (09:04)
[2017-05-30 12:30] LABS: BG BASE EXCESS 7.9 mmol/L (-2.0-2.0); BG CARBOXYHEMOGLOBIN 1.5 % (0.5-1.5); BG DEOXYHEMOGLOBIN 8.5 % (0.0-5.0); BG FRACTION INSPIRED OXYGEN 21; BG HCO3 ACT 33.9 mmol/L (22.0-26.0); BG METHEMOGLOBIN 0.4 % (0.0-1.5); BG OXYGEN SATURATION 91.3 % (92.0-98.5); BG OXYHEMOGLOBIN 89.6 % (94.0-97.0); BG PCO2 52.1 mmHg (35.0-45.0); BG PH 7.431 (7.350-7.450); BG PO2 59.8 mmHg (75.0-100.0); BG SAMPLE SITE RIGHT RADIAL; BG TOTAL HEMOGLOBIN 15.3 g/dL (12.0-18.0); BG VENT MODE ROOM AIR
[2017-05-31] VITALS (12 sets, daily range): BP systolic 99–125; BP diastolic 67–95
[2017-05-31] MEDS: IPRATROPIUM/ALBUTEROL 0.5-3(2.5)MG/3ML NEB HHN SCH ×6 (00:26→21:12)
[2017-05-31] MEDS: DILTIAZEM HCL 60MG TABLET PO SCH ×3 (05:29→21:58)
[2017-05-31] MEDS: THEOPHYLLINE ANHYDROUS 80 MG/15 ML 120ML PO SCH ×3 (05:30→22:02)
[2017-05-31] MEDS: PANTOPRAZOLE 40MG DR TABLET PO SCH (05:55)
[2017-05-31] MEDS: CARBAMAZEPINE 100MG TABLET CHEW PO SCH ×2 (07:58→16:35)
[2017-05-31] MEDS: PREDNISONE 20MG TABLET PO SCH (08:00)
[2017-05-31] MEDS: FOLIC ACID 1MG TABLET PO SCH (08:00)
[2017-05-31] MEDS: LACTULOSE 20G/30ML UDC PO SCH (08:00)
[2017-05-31] MEDS: THIAMINE HCL 100MG TABLET PO SCH (08:00)
[2017-05-31] MEDS: NICOTINE 14MG PATCH TD SCH (08:00)
[2017-05-31] MEDS: MULTIVITAMINS,THER W-MINERALS TABLET PO SCH (08:00)
[2017-05-31] MEDS: BUDESONIDE 0.5MG/2ML NEB HHN SCH ×2 (13:34→21:13)
[2017-06-01] VITALS (12 sets, daily range): BP systolic 107–136; BP diastolic 75–99
[2017-06-01] MEDS: IPRATROPIUM/ALBUTEROL 0.5-3(2.5)MG/3ML NEB HHN SCH ×6 (01:02→20:56)
[2017-06-01] MEDS: THEOPHYLLINE ANHYDROUS 80 MG/15 ML 120ML PO SCH ×3 (05:59→21:33)
[2017-06-01] MEDS: PANTOPRAZOLE 40MG DR TABLET PO SCH (05:59)
[2017-06-01] MEDS: DILTIAZEM HCL 60MG TABLET PO SCH ×3 (06:00→21:33)
[2017-06-01] MEDS: BUDESONIDE 0.5MG/2ML NEB HHN SCH ×2 (08:20→20:56)
[2017-06-01 12:28] LABS: CLARITY URINE CLEAR (CLEAR); COLOR URINE YELLOW (YELLOW); GLUCOSE URINE NEGATIVE (NEGATIVE); KETONES URINE NEGATIVE (NEGATIVE); LEUKOCYTE ESTERASE URINE NEGATIVE (NEGATIVE); NITRITE URINE NEGATIVE (NEGATIVE); OCCULT BLOOD URINE NEGATIVE (NEGATIVE); PH URINE 7.5 (4.5-8.0); PROTEIN URINE NEGATIVE (NEGATIVE); SPECIFIC GRAVITY URINE 1.013 (1.005-1.030); UROBILINOGEN URINE 0.2 E.U./dL (0.2-1.0)
[2017-06-01] MEDS: MULTIVITAMINS,THER W-MINERALS TABLET PO SCH (12:49)
[2017-06-01] MEDS: THIAMINE HCL 100MG TABLET PO SCH (12:49)
[2017-06-01] MEDS: FOLIC ACID 1MG TABLET PO SCH (12:49)
[2017-06-01] MEDS: LACTULOSE 20G/30ML UDC PO SCH (12:51)
[2017-06-01] MEDS: NICOTINE 14MG PATCH TD SCH (12:54)
[2017-06-01] MEDS: CARBAMAZEPINE 100MG TABLET CHEW PO SCH ×2 (13:03→21:33)
[2017-06-02] VITALS (12 sets, daily range): BP systolic 102–125; BP diastolic 69–88
[2017-06-02] MEDS: IPRATROPIUM/ALBUTEROL 0.5-3(2.5)MG/3ML NEB HHN SCH ×6 (00:59→20:55)
[2017-06-02] MEDS: PANTOPRAZOLE 40MG DR TABLET PO SCH (05:55)
[2017-06-02] MEDS: THEOPHYLLINE ANHYDROUS 80 MG/15 ML 120ML PO SCH ×3 (05:55→21:50)
[2017-06-02] MEDS: DILTIAZEM HCL 60MG TABLET PO SCH ×3 (05:55→21:50)
[2017-06-02] MEDS: PREDNISONE 10MG TABLET PO SCH (08:04)
[2017-06-02] MEDS: NICOTINE 14MG PATCH TD SCH (08:04)
[2017-06-02] MEDS: FOLIC ACID 1MG TABLET PO SCH (08:04)
[2017-06-02] MEDS: CARBAMAZEPINE 100MG TABLET CHEW PO SCH ×2 (08:04→16:43)
[2017-06-02] MEDS: LACTULOSE 20G/30ML UDC PO SCH (08:04)
[2017-06-02] MEDS: THIAMINE HCL 100MG TABLET PO SCH (08:04)
[2017-06-02] MEDS: MULTIVITAMINS,THER W-MINERALS TABLET PO SCH (08:04)
[2017-06-02] MEDS: BUDESONIDE 0.5MG/2ML NEB HHN SCH ×2 (08:08→20:55)
[2017-06-03] VITALS (16 sets, daily range): BP systolic 93–119; BP diastolic 65–96
[2017-06-03] MEDS: IPRATROPIUM/ALBUTEROL 0.5-3(2.5)MG/3ML NEB HHN SCH ×6 (01:04→19:36)
[2017-06-03] MEDS: THEOPHYLLINE ANHYDROUS 80 MG/15 ML 120ML PO SCH ×3 (05:58→21:13)
[2017-06-03] MEDS: PANTOPRAZOLE 40MG DR TABLET PO SCH (05:59)
[2017-06-03] MEDS: DILTIAZEM HCL 60MG TABLET PO SCH ×3 (05:59→21:03)
[2017-06-03] MEDS: BUDESONIDE 0.5MG/2ML NEB HHN SCH ×2 (09:14→19:37)
[2017-06-03] MEDS: MULTIVITAMINS,THER W-MINERALS TABLET PO SCH (09:41)
[2017-06-03] MEDS: FOLIC ACID 1MG TABLET PO SCH (09:41)
[2017-06-03] MEDS: PREDNISONE 10MG TABLET PO SCH (09:41)
[2017-06-03] MEDS: THIAMINE HCL 100MG TABLET PO SCH (09:41)
[2017-06-03] MEDS: LACTULOSE 20G/30ML UDC PO SCH (09:41)
[2017-06-03] MEDS: CARBAMAZEPINE 100MG TABLET CHEW PO SCH ×3 (09:42→18:44)
[2017-06-03] MEDS: NICOTINE 14MG PATCH TD SCH (09:44)
[2017-06-03] MEDS ORDERED: CARBAMAZEPINE 100MG TABLET CHEW PO NR (18:30)
[2017-06-04] VITALS (12 sets, daily range): BP systolic 102–121; BP diastolic 57–89
[2017-06-04] MEDS: IPRATROPIUM/ALBUTEROL 0.5-3(2.5)MG/3ML NEB HHN SCH ×4 (04:10→11:12)
[2017-06-04] MEDS: PANTOPRAZOLE 40MG DR TABLET PO SCH (05:54)
[2017-06-04] MEDS: DILTIAZEM HCL 60MG TABLET PO SCH ×2 (05:54→14:00)
[2017-06-04] MEDS: THEOPHYLLINE ANHYDROUS 80 MG/15 ML 120ML PO SCH ×2 (05:54→14:33)
[2017-06-04] MEDS: BUDESONIDE 0.5MG/2ML NEB HHN SCH (09:00)
[2017-06-04] MEDS: LACTULOSE 20G/30ML UDC PO SCH (09:46)
[2017-06-04] MEDS: PREDNISONE 10MG TABLET PO SCH (09:46)
[2017-06-04] MEDS: THIAMINE HCL 100MG TABLET PO SCH (09:46)
[2017-06-04] MEDS: CARBAMAZEPINE 100MG TABLET CHEW PO SCH (09:46)
[2017-06-04] MEDS: FOLIC ACID 1MG TABLET PO SCH (09:46)
[2017-06-04] MEDS: NICOTINE 14MG PATCH TD SCH (09:46)
[2017-06-04] MEDS: MULTIVITAMINS,THER W-MINERALS TABLET PO SCH (09:46)
[2017-06-04] MEDS ORDERED: LACTULOSE 20G/30ML UDC PO NR (14:30)
== END 2017-06-04 17:12 | DRG 189 ==
LOC: EDBEDREQ 16:15 → ER 16:24 → 3WST 16:40 → ENRESERV 20:05 → CVICU 05-22 15:57 → 3WST 05-23 18:17
PROVIDERS: ADMIT Internal Medicine; ATTEND Internal Medicine
PROC: 5A09357 Assistance with Respiratory Ventilation, Less than 24 Consecutive Hours, Continuous Positive Airway Pressure (ICD-10-PCS; principal; 2017-05-17)
DX: J96.21 Acute and chronic respiratory failure with hypoxia (principal); G82.50 Quadriplegia, unspecified; G93.40 Encephalopathy, unspecified; J18.9 Pneumonia, unspecified organism; I11.0 Hypertensive heart disease with heart failure; E87.2 Acidosis; D69.6 Thrombocytopenia, unspecified; I50.9 Heart failure, unspecified; R13.10 Dysphagia, unspecified; J44.1 Chronic obstructive pulmonary disease with (acute) exacerbation; I47.1 Supraventricular tachycardia; J98.11 Atelectasis; F10.239 Alcohol dependence with withdrawal, unspecified; J44.0 Chronic obstructive pulmonary disease with (acute) lower respiratory infection; E83.42 Hypomagnesemia; J96.22 Acute and chronic respiratory failure with hypercapnia; I27.29 Other secondary pulmonary hypertension; D64.9 Anemia, unspecified; F12.90 Cannabis use, unspecified, uncomplicated; F17.210 Nicotine dependence, cigarettes, uncomplicated; F20.9 Schizophrenia, unspecified; G40.909 Epilepsy, unspecified, not intractable, without status epilepticus; R79.1 Abnormal coagulation profile; Z91.19 Patient's noncompliance with other medical treatment and regimen; R74.0 Nonspecific elevation of levels of transaminase and lactic acid dehydrogenase [LDH]; M48.8X4 Other specified spondylopathies, thoracic region; Y90.0 Blood alcohol level of less than 20 mg/100 ml
CPT/HCPCS: 36415; 36600; 71010; 76700; 78580; 80048; 80053; 80061; 80156; 80198; 80305; 81001; 81003; 82140; 82270; 82375; 82550; 82553; 82728; 82746; 82805; 83010; 83036; 83605; 83615; 83690; 83735; 83880; 84443; 84478; 84484; 85025; 85044; 85049; 85362; 85379; 85610; 85651; 85730; 86022; 86705; 86709; 86803; 87040; 87086; 87340; 92523; 92610; 93005; 93306; 93970; 94640; 94660; 94664; 96365; 96375; 97110; 97116; 97163; 97166; 97530; 97535; 99291; A6261; C1893; G0482; J0456; J1650; J1940; J1956; J2060; J2543; J2920; J2930; J3475; J7050; J7060; J7512; J7608; J7611; J7620; J7626; A4315

== ENCOUNTER 2017-08-15 10:36 | Emergency (ER) | payer OTHER, MEDICAID ==
[~2017-08-15] VITALS: Ht 172.7 cm; Wt 69.0 kg
[2017-08-15] MEDS ORDERED: METHYLPREDNISOLONE SOD SUCC 125 MG/2 ML VIAL IV STA ×2 (11:38→16:44)
[2017-08-15] MEDS ORDERED: ALBUTEROL (0.083%) 2.5MG/3ML NEB HHN STA ×2 (11:38→16:42)
[2017-08-15] MEDS ORDERED: NITROGLYCERIN 0.4MG TABLET SL SL PRN (11:45)
[2017-08-15] MEDS ORDERED: ASPIRIN 81MG TABLET PO ONE ×2 (11:45→16:45)
[2017-08-15 12:23] LABS: BASOPHILS % 0.5 % (0.0-2.0); EOSINOPHILS % 4.2 % (0.0-5.0); HEMATOCRIT. 42.5 % (42.0-52.0); HEMOGLOBIN. 13.4 g/dL (14.0-18.0); LYMPHOCYTES % 28.2 % (20.0-50.0); MEAN CORPUSCULAR VOLUME 92.2 fL (80.0-94.0); MEAN PLATELET VOLUME 7.2 fl (7.4-10.4); MONOCYTES % 14.7 % (2.0-8.0); NEUTROPHILS % 52.4 % (40.0-76.0); PLATELET 192 x1000/uL (130-400); RED BLOOD CELL COUNT 4.61 mill/uL (4.7-6.1); RED CELL DISTRIBUTION WIDTH 17.8 % (11.6-14.6)
[2017-08-15 12:33] LABS: INR 1.1; PROTHROMBIN TIME 11.1 sec (9.4-11.6)
[2017-08-15 12:37] LABS: CARBON DIOXIDE 38 mEq/L (21-32); CHLORIDE 101 mEq/L (98-107); ETHANOL BLOOD < 10 mg/dL
[2017-08-15 12:41] LABS: TROPONIN I < 0.02 ng/mL (0.00-0.04)
[2017-08-15 13:15] LABS: *AMPHETAMINES SCREEN URINE NEGATIVE (NEGATIVE); *BARBITURATES SCREEN URINE NEGATIVE (NEGATIVE); *BENZODIAZEPINES SCREEN URINE NEGATIVE (NEGATIVE); *COCAINE SCREEN URINE PRESUMTIVE POSITIVE (NEGATIVE); CANNABINOID URINE SCREEN PRESUMTIVE POSITIVE (NEGATIVE); METHADONE URINE SCREEN NEGATIVE (NEGATIVE); OPIATES URINE SCREEN NEGATIVE (NEGATIVE); PHENCYCLIDINE URINE SCREEN NEGATIVE (NEGATIVE)
[2017-08-15] MEDS ORDERED: LORAZEPAM 1MG TABLET PO ONE (16:15)
[2017-08-15 18:20] VITALS: BP 135/87
== END 2017-08-15 18:51 | disposition home or self-care (01) ==
LOC: ER 12:21
DX: R07.89 Other chest pain (principal); J44.1 Chronic obstructive pulmonary disease with (acute) exacerbation; T40.5X1A Poisoning by cocaine, accidental (unintentional), initial encounter; F14.10 Cocaine abuse, uncomplicated; Y92.89 Other specified places as the place of occurrence of the external cause; Z72.0 Tobacco use
CPT/HCPCS: 36415; 71010; 80053; 80305; 83880; 84484; 85025; 85610; 93005; 94640; 96374; 99285; G0482; J2930; J7611

== ENCOUNTER 2017-10-17 14:19 | Emergency (ER) | payer OTHER, MEDICAID ==
[~2017-10-17] VITALS: Ht 175.3 cm; Wt 73.0 kg
[2017-10-17] MEDS ORDERED: ONDANSETRON HCL 4MG/2ML VIAL IV STA (15:09)
[2017-10-17] MEDS ORDERED: SODIUM CHLORIDE 0.9% 1,000 ML IV ONE (15:09)
[2017-10-17] MEDS ORDERED: FAMOTIDINE 20MG/2ML VIAL IV ONE (15:15)
[2017-10-17 15:43] LABS: HEMATOCRIT. 45.2 % (42.0-52.0); HEMOGLOBIN. 14.3 g/dL (14.0-18.0); MEAN CORPUSCULAR HEMOGLOBIN 26.8 pg (28.0-32.0); MEAN CORPUSCULAR VOLUME 84.9 fL (80.0-94.0); MEAN PLATELET VOLUME 7.5 fl (7.4-10.4); PLATELET 171 x1000/uL (130-400); RED BLOOD CELL COUNT 5.33 mill/uL (4.7-6.1); RED CELL DISTRIBUTION WIDTH 16.9 % (11.6-14.6)
[2017-10-17 15:50] LABS: INR 1.2; PROTHROMBIN TIME 12.6 sec (9.4-11.6)
[2017-10-17 15:55] LABS: CHLORIDE 99 mEq/L (98-107); ETHANOL BLOOD < 10 mg/dL
[2017-10-17 16:59] LABS: ATYPICAL LYMPHOCYTES 1; NUCLEATED RED BLOOD CELLS 1 /100 WBC; PLATELET ESTIMATE NORMAL
[2017-10-17 18:25] VITALS: BP 171/71
== END 2017-10-17 18:31 | disposition home or self-care (01) ==
LOC: ER 16:05
DX: R10.32 Left lower quadrant pain (principal); K52.9 Noninfective gastroenteritis and colitis, unspecified; R18.8 Other ascites; K86.9 Disease of pancreas, unspecified; J90 Pleural effusion, not elsewhere classified; J84.10 Pulmonary fibrosis, unspecified; J45.909 Unspecified asthma, uncomplicated; G40.909 Epilepsy, unspecified, not intractable, without status epilepticus
CPT/HCPCS: 36415; 74176; 80053; 83690; 85025; 85610; 96361; 96374; 96375; 99285; G0482; J2405; J3490; J7030